=== PATIENT | female | born 1930 | race Two or more races ===

== ENCOUNTER 2019-05-01 18:52 | Emergency (ER) | payer OTHER ==
[~2019-05-01] VITALS: Ht 152.4 cm; Wt 54.4 kg
[2019-05-01] MEDS ORDERED: LEVO-T50 MCG (19:31)
[2019-05-01] MEDS ORDERED: VENLAFAXINE H37.5 M2 (19:32)
[2019-05-01] MEDS ORDERED: VENLAFAXINE HCL75 M1 (19:32)
[2019-05-01] MEDS ORDERED: AMLODIPINE-OLM1 EAC2 (19:32)
[2019-05-01] MEDS ORDERED: ARICEPT10 MG (19:33)
[2019-05-01] MEDS ORDERED: CHILDREN'S ASPI81 MG (19:33)
[2019-05-01] MEDS ORDERED: INTEGRA CAPSUL1 EACH (19:33)
[2019-05-01] MEDS ORDERED: COZAAR25 MG (19:34)
[2019-05-01] MEDS ORDERED: FORTAMET500 MG (19:34)
[2019-05-01] MEDS ORDERED: DOCUSATE CALCI240 MG (19:35)
== END 2019-05-02 00:28 | disposition home or self-care (01) ==
LOC: ER 18:52
DX: R55 Syncope and collapse (principal); I16.0 Hypertensive urgency; I10 Essential (primary) hypertension